=== PATIENT | female | born 1990 | race Caucasian/White ===

== ENCOUNTER 2017-04-15 19:22 | Emergency (ER) | payer OTHER ==
[2017-04-15 19:36] VITALS: TEMP 97.9
[2017-04-15] MEDS ORDERED: OXYCODONE/APAP 5/325 TAB PO ONE (21:05)
[2017-04-15] MEDS ORDERED: IBUPROFEN 600 MG TAB PO ONE (21:05)
--- NOTE | 2017-04-15 21:14 | EDPHY ---
H & P Time Seen by Provider: 04/15/17 20:50 HPI/ROS: CHIEF COMPLAINT: Dog bite HISTORY OF PRESENT ILLNESS: This is a 26-year-old female presenting to the emergency department with dog bite to right forearm. Patient states she was running on her block when a dog jumped over the fence charged her grabbed her on her right forearm 2 puncture wounds noted. Patient states tetanus up-to-date , dog did appear well-appearing it is and neighborhood dog. Police was already notified at the scene. REVIEW OF SYSTEMS: Constitutional: No fever, no chills. Eyes: No discharge. ENT: No sore throat. Cardiovascular: No chest pain, no palpitations. Respiratory: No cough, no shortness of breath. Gastrointestinal: No abdominal pain, no vomiting. Genitourinary: No hematuria. Musculoskeletal: No back pain. Right forearm pain Skin: No rashes. Right forearm dog bite Neurological: No headache. Smoking Status: Never smoked Physical Exam: General Appearance: Alert and no distress. Eyes: Pupils equal and round no injection. Respiratory: Chest is nontender, lungs are clear to auscultation. Cardiac: regular rate and rhythm Gastrointestinal: Abdomen is soft and nontender Musculoskeletal: Neck is supple and nontender. Extremities: Right anterior forearm 1 cm laceration puncture wound Skin: No rashes or lesions. Constitutional: Initial Vital Signs Temperature (C) 36.6 C 04/15/17 19:29 Heart Rate 92 04/15/17 19:29 Respiratory Rate 18 04/15/17 19:29 Blood Pressure 111/87 H 04/15/17 19:29 O2 Sat (%) 100 04/15/17 19:29 O2 Delivery Mode Room Air Allergies/Adverse Reactions: No Known Allergies Allergy (Unverified 04/15/17 19:28) Home Medications: Medication Instructions Recorded Amoxicillin/Clavulanate Pot 875 mg PO BID #14 tab 04/15/17 [Augmentin 875 MG TAB (*)] Medical Decision Making Procedures: Procedure: Laceration repair. Verbal consent was obtained from the patient. 1.5 cm laceration on the right anterior forearm. 0.5 percent bupivacaine with epi 5ml local infiltrate. The wound was irrigated. There were no deep structures involved. The wound was repaired 5-0 Prolene #4 sutures placed. The procedure was performed by myself. A dressing was applied by our EMT. ED Course/Re-evaluation: Discussed ED plan of care: The wound irrigation, wound repair 2245: Wound repair. Patient tolerated procedure. Discharge home---> stable, discussed discharge instructions with patient Differential Diagnosis: Other differential diagnosis considered but not limited to foreign body, deep tissue laceration, cellulitis - Data Points Medications Given: Discontinued Medications Amoxicillin/Clavulanate Potassium (Augmentin 875mg) 875 mg PO EDNOW ONE PRN Reason: Protocol Stop: 04/15/17 22:14 Last Admin: 04/15/17 22:27 Dose: 875 mg Ibuprofen (Motrin) 600 mg PO EDNOW ONE Stop: 04/15/17 21:06 Last Admin: 04/15/17 21:11 Dose: 600 mg Oxycodone/Acetaminophen (Percocet 5/325) 1 tab PO EDNOW ONE Stop: 04/15/17 21:06 Last Admin: 04/15/17 21:11 Dose: 1 tab Oxycodone/Acetaminophen (Percocet 5/325mg Prepack#4) 1 btl TAKEHOME EDNOW ONE Stop: 04/15/17 22:15 Last Admin: 04/15/17 22:29 Dose: 1 btl Departure - Departure Disposition: Home, Routine, Self-Care Clinical Impression: Laceration Dog bite of arm Qualifiers: Encounter type: initial encounter Laterality: right Qualified Code(s): S41.151A - Open bite of right upper arm, initial encounter; W54.0XXA - Bitten by dog, initial encounter Condition: Good Instructions: Oxycodone/Acetaminophen (By mouth), Animal Bite (ED), Care For Your Stitches (ED), Laceration (ED) Additional Instructions: 1. Take all antibiotics as prescribed 2. Monitor wound for any signs of infection, such as: Redness, red streaks, pus, swelling 3. No Yu, river water exposure as this can increase her chances for infection 4. Ibuprofen 600 mg every 6-8 hours as needed 5. Ice 15 minutes several times a day to help with swelling 6. Have stitches removed in 10 days Referrals: NONE *PRIMARY CARE P,. [Primary Care Provider] - As per Instructions [facility],. [Clinic] - As per Instructions Prescriptions: Amoxicillin/Clavulanate Pot [Augmentin 875 MG TAB (*)] 875 mg PO BID #14 tab
[2017-04-15] MEDS ORDERED: AMOXICILLIN/CLAVULANATE POT 875/125 MG TAB PO ONE (22:13)
[2017-04-15] MEDS ORDERED: OXYCODONE/APAP 5/325MG PREPACK#4 BTL TAKEHOME ONE (22:14)
[2017-04-15 22:35] VITALS: BP 115/62; PULSE 70; RESP 14; O2SAT 96
== END 2017-04-15 22:33 | disposition home or self-care (01) ==
PROC: 0HQDXZZ Repair Right Lower Arm Skin, External Approach (ICD-10-PCS; principal; 2017-04-15)
DX: S51.811A Laceration without foreign body of right forearm, initial encounter (principal); W54.0XXA Bitten by dog, initial encounter; Y99.8 Other external cause status; Y93.02 Activity, running

== ENCOUNTER 2017-09-13 09:36 | Day surgery (SDC) | payer OTHER ==
[2017-09-13] MEDS ORDERED: ONDANSETRON 4 MG/2 ML VIAL IVP ONE ×2 (09:44→12:17)
[2017-09-13] MEDS ORDERED: fentaNYL 100 MCG/2 ML INJ IVP ONE (09:44)
--- NOTE | 2017-09-13 10:02 | EDPHY ---
General - History Smoking Status: Never smoked Narrative: CHIEF COMPLAINT: Dog bite to left hand HISTORY OF PRESENT ILLNESS: Patient presents by EMS with complaints of dog bite to the left hand. She says that her dogs were fighting when she attempts to break up a fight. She put her hand between them when 1 of them bit her. The injuries to the left ring finger there is laceration there. Significant pain. No numbness or tingling. Difficulty bending the finger due to pain. No injury elsewhere. Tetanus up-to- date. The dog's are both vaccinated and up-to-date. Pain is rated as 10/10. She arrives by EMS and is at time of arrival they attempted to remove the ring finger but were unable to do so due to crepitus in the finger. No other associated complaints or modifying factors. Right-hand dominant. REVIEW OF SYSTEMS: Ten systems reviewed and are negative unless otherwise noted in the HPI PCP: None SPECIALISTS: None PAST MEDICAL HISTORY: No significant medical history PAST SURGICAL HISTORY: [place] tooth extraction on Saturday FAMILY HISTORY: Noncontributory EXAMINATION General Appearance: Alert, no distress Head: normocephalic, atraumatic ENT: Airway widely patent. No trismus. There is clot formation in the bed of the wisdom tooth extraction sites. No active bleeding. Respiratory: No retractions or distress Cardiovascular: Symmetric radial pulses 2+. Brisk cap refill in the affected finger Neurological: A&O, nonfocal. It sensation intact to the dorsum of both hands. No wrist drop Skin: Warm and dry, no rash. Complex laceration of the left hand, extending from the webspace of the left ring finger to the dorsum of the hand. 2.5 cm. No pulsatile bleeding. Able to visualize fully due to dried Extremities: Tenderness and crepitus to the proximal phalanx of the left ring finger range of motion not tested due to patient pain intolerance. DIFFERENTIAL DIAGNOSES: Including but not limited to dog bite, complex laceration, fracture, open fracture, dislocation, open dislocation MDM: 9:45 a.m. Reported dog bite to the left hand between the ring finger and middle finger. Range of motion was not tested prior to the x-ray due to her pain. She does have brisk cap refill in the affected finger. Tetanus is up-to-date. No acute distress. I will administer digital block. X-ray pending. 10:10 a.m. During administration of the digital Block discovered a 2nd laceration. This is on the radial side of the left 2nd metacarpal. Unable to fully visualize this due to the dried blood. We will clean this and re-evaluate. My initial read of the x-ray at bedside is a fracture of the proximal phalanx on the left ring finger. 10:20 a.m. Ring has been removed. Proceed with topical let application to the 2nd laceration. Then proceed with irrigation. Repeat the x-ray due to partial obscuring of the fracture by the ring. 10:59 a.m. Wounds have now been fully anesthetized and visualized better there does not appear to be an obvious tendon injury, but she does have an open fracture of the proximal phalanx of left ring finger. A superficial laceration of the left hand over the 2nd metacarpal but I will consult hand surgeon at this time. 11:25 a.m. Case discussed with hand surgeon Dr. Pritchard. Request IV Unasyn and bedside irrigation. He will come evaluate the patient. 12:15 p.m. Patient re-evaluated. Digital block is wearing off and her pain is increasing. I have ordered IV pain medication. She remains NPO for the likelihood of surgery. 1:[address] Pritchard is at bedside evaluating the patient. Plans for surgical intervention. She is tentatively scheduled for 16:30 today. Plans for disposition home after operating room. 3:00 p.m. Patient re-evaluated. She is awaiting transport to the operating room. She is complaining of tolerable left hand pain. She has mild pain in the location of her with some tooth extraction. I offered a dental block which she declined. She should be taken for preop soon. PROCEDURE: Digital Block Indication: Finger laceration, fracture and in need of ring removal Consent: Verbal Location: Left ring finger Anesthesia: Lidocaine 1% plain, 0.25% Marcaine plain, 5mL Description: Base of the finger was prepped. The above was infused without difficulty. Tolerated well. Good anesthesia. Complications: None SUPERVISION: Patient was independently examined, but I discussed the case with my secondary supervising physician Dr. Townsend ([facility]) Medical Decision Making: I evaluated and participated in the management of the patient. I also evaluated the patient independently. My co-signature indicates that I have reviewed this chart and I agree with the findings and plan of care as documented. My personal H&P findings include: The patient presents to the ED for evaluation of a open fracture to her left hand. She was bit by her dog prior to arrival. She reports no significant past medical history. She denies any acute numbness or weakness. Physical examination demonstrates a 3 cm oblique laceration over the dorsum of the left 4th finger. I reviewed the patient's x-ray which demonstrates a comminuted fracture to the left proximal phalanx. The patient's wound was anesthetized. It was copiously irrigated. The patient has an open fracture. Consultation was made with Dr. Pritchard from Hand surgery. The patient received IV Unasyn in the emergency department. The patient will be taken to the operating room for washout and ORIF. (Vaibhav Townsend) - Diagnostics Imaging Results: Imaging Impressions Hand X-Ray 09/13/17 09:44 Impression: 1. Complex angulated fracture proximal to midshaft left fourth digit around the ring that remains in place with some gas in the soft tissues. - Objective Vital Signs: Initial Vital Signs Temperature (C) 98.4 F 09/13/17 09:44 Heart Rate 89 09/13/17 09:44 Respiratory Rate 20 09/13/17 09:44 Blood Pressure 124/94 H 09/13/17 09:44 O2 Sat (%) 95 09/13/17 09:44 O2 Delivery Mode Room Air Allergies/Adverse Reactions: No Known Allergies Allergy (Unverified 04/15/17 19:28) Home Medications: Medication Instructions Recorded Amoxicillin Trihydrate 500 mg PO TID 09/13/17 [Amoxicillin] Chlorhexidine Gluconate 1 dose PO 09/13/17 Hydrocodone/Acetaminophen [[place] 1 - 2 each PO Q4 09/13/17 5/325 (*)] Ibuprofen [Motrin (*)] 600 mg PO 09/13/17 Norethindrone-E.estradiol-Iron 1 each PO 09/13/17 [Microgestin Fe 1-20 Tablet] Laboratory Results: Laboratory Results 09/13/17 09:52 09/13/17 09:52 09/13/17 09/13/17 09/13/17 09:52 09:52 09:52 WBC 9.18 10^3/uL 10^3/uL (3.80-9.50) RBC 4.65 10^6/uL 10^6/uL (4.18-5.33) Hgb 14.6 g/dL g/dL (12.6-16.3) Hct 40.9 % % (38.0-47.0) MCV 88.0 fL fL (81.5-99.8) MCH 31.4 pg pg (27.9-34.1) MCHC 35.7 g/dL g/dL (32.4-36.7) RDW 12.4 % % (11.5-15.2) Plt Count 259 10^3/uL 10^3/uL (150-400) Sodium 140 mEq/L mEq/L (134-144) Potassium 3.9 mEq/L mEq/L (3.5-5.2) Chloride 103 mEq/L mEq/L (97-110) Carbon Dioxide 26 mEq/l mEq/l (22-31) Anion Gap 11 mEq/L mEq/L (8-16) BUN 9 mg/dL mg/dL (7-23) Creatinine 0.7 mg/dL mg/dL (0.6-1.0) Estimated GFR > 60 Glucose 89 mg/dL mg/dL (70-100) Calcium 9.5 mg/dL mg/dL (8.5-10.4) Beta HCG, Qual NEGATIVE Medications Given: Discontinued Medications Fentanyl (Sublimaze) 75 mcg IVP EDNOW ONE Stop: 09/13/17 09:45 Last Admin: 09/13/17 10:11 Dose: 75 mcg Ampicillin Sodium/Sulbactam (Sodium 3 gm/ Sodium Chloride) 100 mls @ 200 mls/ hr IV EDNOW ONE PRN Reason: Protocol Stop: 09/13/17 11:54 Last Admin: 09/13/17 12:11 Dose: 100 mls Morphine Sulfate (Morphine) 4 mg IVP EDNOW ONE Stop: 09/13/17 12:18 Last Admin: 09/13/17 12:32 Dose: 4 mg Ondansetron HCl (Zofran) 4 mg IVP EDNOW ONE Stop: 09/13/17 09:45 Last Admin: 09/13/17 10:11 Dose: 4 mg Ondansetron HCl (Zofran) 4 mg IVP EDNOW ONE Stop: 09/13/17 12:18 Last Admin: 09/13/17 12:32 Dose: 4 mg Tetracaine/Epinephrine/Lidocaine (Let Gel Topical) 1 ea TP EDNOW ONE Stop: 09/13/17 10:16 Last Admin: 09/13/17 10:32 Dose: 1 ea Departure - Departure Disposition: To OP Cath/Surgery Clinical Impression: Open fracture of phalanx of finger Qualifiers: Encounter type: initial encounter Finger: ring finger Phalanx: proximal Fracture alignment: displaced Laterality: left Qualified Code(s): S62.615B - Displaced fracture of proximal phalanx of left ring finger, initial encounter for open fracture Dog bite of arm Qualifiers: Encounter type: initial encounter Laterality: left Qualified Code(s): S41.152A - Open bite of left upper arm, initial encounter Condition: Good
[2017-09-13] MEDS ORDERED: LET GEL TOPICAL 1 EA SYR TP ONE (10:15)
[2017-09-13] MEDS ORDERED: AMPICILLIN/SULBACTAM 3 GM in NS 100 ML IV ONE (11:25)
[2017-09-13 12:23] LABS: HEMATOCRIT 40.9 % (38.0-47.0); HEMOGLOBIN 14.6 g/dL (12.6-16.3); MEAN CELL HEMOGLOBIN 31.4 pg (27.9-34.1); MEAN CELL HEMOGLOBIN CONCENTR. 35.7 g/dL (32.4-36.7); RED BLOOD CELL COUNT 4.65 10^6/uL (4.18-5.33); RED CELL DISTRIBUTION WIDTH 12.4 % (11.5-15.2)
[2017-09-13 12:34] LABS: ANION GAP 11 mEq/L (8-16); CALCIUM 9.5 mg/dL (8.5-10.4); CARBON DIOXIDE 26 mEq/l (22-31); CHLORIDE 103 mEq/L (97-110); CREATININE 0.7 mg/dL (0.6-1.0); GLOMERULAR FILTRATION RATE > 60; GLUCOSE 89 mg/dL (70-100); POTASSIUM 3.9 mEq/L (3.5-5.2); SODIUM 140 mEq/L (134-144)
[2017-09-13 14:22] VITALS: PULSE 84
[2017-09-13] MEDS ORDERED: BACITRACIN 50,000 UNITS/10 ML SYR IRR ONE (16:08)
[2017-09-13] MEDS ORDERED: BUPIVACAINE 0.5% 30 ML SDV ONE ×2 (16:08→17:04)
[2017-09-13] MEDS ORDERED: MIDAZOLAM 2 MG/2 ML VIAL IVP ONE (16:28)
[2017-09-13] MEDS ORDERED: LR 1,000 ML IV ONE (16:29)
--- NOTE | 2017-09-13 16:29 | PDANEPAE ---
ANE History of Present Illness here for hand I and D ANE Past Medical History - Cardiovascular History Hx Hypertension: No Hx Arrhythmias: No Hx Chest Pain: No Hx Coronary Artery / Peripheral Vascular Disease: No Hx CHF / Valvular Disease: No Hx Palpitations: No - Pulmonary History Hx COPD: No Hx Asthma/Reactive Airway Disease: No Hx Recent Upper Respiratory Infection: No Hx Oxygen in Use at Home: No Hx Sleep Apnea: No - Endocrine History Hx Diabetes: No ANE Review of Systems Review of systems is: negative Review of Systems: - Exercise capacity Exercise capacity: >=4 METS ANE Patient History - Allergies Allergies/Adverse Reactions: No Known Allergies Allergy (Unverified 04/15/17 19:28) - Home Medications Home medications: home medication list seen and reviewed Home Medications: Amoxicillin Trihydrate [Amoxicillin] 500 mg PO TID 09/13/17 [Last Taken Unknown] Chlorhexidine Gluconate 1 dose PO 09/13/17 [Last Taken Unknown] Hydrocodone/Acetaminophen [[place] 5/325 (*)] 1 - 2 each PO Q4 09/13/17 [Last Taken Unknown] Ibuprofen [Motrin (*)] 600 mg PO 09/13/17 [Last Taken Unknown] Norethindrone-E.estradiol-Iron [Microgestin Fe 1-20 Tablet] 1 each PO 09/13/17 [ Last Taken Unknown] - NPO status NPO Since - Liquids (Date): 09/13/17 NPO Since - Liquids (Time): 08:00 NPO Since - Solids (Date): 09/13/17 NPO Since - Solids (Time): 08:00 - Anes Hx Anes Hx: no prior problems, post operative nausea - Smoking Hx Smoking Status: Never smoked ANE Labs/Vital Signs - Labs Result Diagrams: 09/13/17 09:52 09/13/17 09:52 - Vital Signs Vital Signs: reviewed preoperatively; see RN documention for details Blood Pressure: 115/72 Heart Rate: 84 Respiratory Rate: 16 O2 Sat (%): 96 Height: 152.4 cm Weight: 46.72 kg ANE Physical Exam - Airway Neck exam: FROM Mallampati Score: Class 1 - Pulmonary Pulmonary: no respiratory distress - Cardiovascular Cardiovascular: regular rate and rhythym - ASA Status ASA Status: I ANE Anesthesia Plan Anesthesia Plan: GA w LMA
[2017-09-13] MEDS ORDERED: HYDROCODONE/APAP 5/325 TAB PO PRN (16:31)
[2017-09-13] MEDS ORDERED: fentaNYL 100 MCG/2 ML INJ IVP PRN (16:31)
[2017-09-13] MEDS ORDERED: ALBUTEROL 3 ML DEYVIAL IH PRN (16:31)
[2017-09-13] MEDS ORDERED: NALOXONE HCL 0.4 MG/ML INJ IVP PRN (16:31)
[2017-09-13] MEDS ORDERED: HYDROmorphONE/DILAUDID 1 MG/ML INJ IVP PRN (16:31)
[2017-09-13] MEDS ORDERED: OXYCODONE/APAP 5/325 TAB PO PRN (16:31)
[2017-09-13] MEDS ORDERED: fentaNYL 100 MCG/2 ML INJ ONE (16:44)
[2017-09-13] MEDS ORDERED: PROPOFOL/EMULSION 500 MG/50 ML BOTTLE IV ONE (16:44)
[2017-09-13] MEDS ORDERED: POLYMYXIN B SULFATE 500,000 UNIT/10 ML SYR IRR ONE (17:17)
--- NOTE | 2017-09-13 18:08 | POSTANESTH ---
Post Anesthetic Evaluation Cardiovascular Status: Normal, Stable Respiratory Status: Normal, Stable Level of Consciousness/Mental Status: Moderately Sleepy Pain Control: Adequate, Prn Tx Ordered Nausea/Vomiting Control: Adequate, Prn Tx Ordered Complications Possibly Related to Anesthesia: None Noted
--- NOTE | 2017-09-13 18:09 | POSTOPPROG ---
Post Op Note Date of Operation: 09/13/17 Surgeon: Jose Pritchard Anesthesia: LMA Pre-op Diagnosis: Comminuted compound fracture left ring proximal phalanx Post-op Diagnosis: Same Procedure: Debridement, irrigation, open reduction and internal fixation Inf/Abcess present in the surg proc area at time of surgery?: No EBL: less than 10cc
[2017-09-13 18:27] VITALS: RESP 20
[2017-09-13 18:46] VITALS: TEMP 97.9; O2SAT 97
[2017-09-13] MEDS ORDERED: HYDROCODONE/APAP 5/325 TAB ONE (19:05)
[2017-09-13 19:26] VITALS: BP 118/76
--- NOTE | 2017-09-13 20:42 | GCON ---
[f rep st] CONSULTATION EMERGENCY ROOM CONSULTATION. DATE OF CONSULTATION: 09/13/2017 CHIEF COMPLAINT: Open fracture, left ring finger. HISTORY OF PRESENTING COMPLAINT: The patient is a 26-year-old woman who was breaking up a fight betw een her 2 dogs when she sustained a bite to her left nondominant hand. She sustained several lacerat ions, and the most significant injury over her left ring finger on which she had an engagement ring. PAST MEDICAL HISTORY: Generally unremarkable. Tetanus status is up to date. She had her wisdom john th removed 4 days ago. MEDICATIONS: Amoxil and control. ALLERGIES: No known drug allergies. EXAMINATION: CONSTITUTIONAL: She is a pleasant, healthy looking 26-year-old female. CARDIOVASCULAR : Heart sounds normal. RESPIRATORY: Chest is clear with good air entry. Examination of the left h and reveals several smaller puncture wounds and then a significant laceration at the ulnar side websp adebayo dorsally toward the base of the ring finger, extending out on the proximal 3rd of the proximal ph alanx. There is some deviation of the finger. DIAGNOSTICS: X-ray reveals that the proximal phalanx has a comminuted fracture of the shaft, which i s not intraarticular at either end. IMPRESSION: Compound comminuted fracture, proximal phalanx, left ring finger. PLAN: I am going to take her to the operating room within the next few hours, and we will irrigate a nd debride this fracture and do internal fixation. /[id number]/MODL
[2017-09-13] MEDS ORDERED: AMOXICILLIN/CLAVULANATE POT 875/125 MG TAB PO SCH (21:00)
--- NOTE | 2017-09-14 05:50 | GOP ---
[f rep st] OPERATIVE REPORT DATE OF OPERATION: 09/13/2017 SURGEON: Jose Pritchard MD PREOPERATIVE DIAGNOSIS: Comminuted compound fracture, left ring finger proximal phalanx. POSTOPERATIVE DIAGNOSIS: Comminuted compound fracture, left ring finger proximal phalanx. Addition of a laceration on the volar 1st web space. PROCEDURE PERFORMED: FINDINGS: ESTIMATED BLOOD LOSS: Less than 5 mL. DESCRIPTION OF PROCEDURE: Patient lying supine under general anesthesia. Left hand and forearm prep ped and draped in usual fashion. Esmarch bandage was applied and tourniquet was inflated to 250 mmHg . The existing laceration over the dorsum of the ring finger was extended proximally and distally in a curving fashion for better exposure. Skin flaps were raised and tendon apparatus was rapidly iden tified and split. It was confirmed that the fracture was compound through the tendon apparatus. Com minuted fracture was exposed and this was noted to have comminution right down to just a couple edgar meters from the surface of the metacarpophalangeal joint. Distally, comminutions also continued, but there were major fracture fragments that could be lined up. A T-shaped 1.3 mm plate was selected an d cut to length and, after reducing things into near anatomic alignment of the major fragments, a tot al of 3 screws were placed at the proximal end, 2 of which were successfully placed as bicortical lag screws to obtain a fairly stable reduction of the proximal part of the fracture. On the distal end of the T-shaped plate, 3 screws were placed, all 3 of which were monocortical. This gave a fairly st able near anatomic reduction of the major fragments, and allowed other fragments to stay in position with good alignment and pretty good stability. The fracture had been irrigated out during the course of exposure with a liter of saline with bacitracin and polymyxin. Tendon apparatus was sutured with 4-0 Vicryl interrupted and running sutures. Skin was closed with 5-0 Prolene. Skin of the 1st webs pace area laceration had also been irrigated and was sutured with 5-0 Prolene. Procedure was tolerat ed well. Tourniquet time was 42 minutes. /[id number]/MODL
== END 2017-09-13 20:26 | disposition home or self-care (01) ==
LOC: EDUNIT# → FSGY 14:05
PROVIDERS: ATTEND Plastic Surgery
DX: S62.615B Displaced fracture of proximal phalanx of left ring finger, initial encounter for open fracture (principal); S61.412A Laceration without foreign body of left hand, initial encounter; W54.0XXA Bitten by dog, initial encounter; Y93.K9 Activity, other involving animal care
CPT/HCPCS: 96365; C1713; J0171; J0295; J2250; J2405; J2704; J3010

== ENCOUNTER → 2018-01-22 | Outpatient (CLI) | payer OTHER | LOC: BMCIMAGING 10:22 | PROVIDERS: ATTEND Orthopaedic Surgery Hand Surgery | DX: S62.615D Displaced fracture of proximal phalanx of left ring finger, subsequent encounter for fracture with routine healing (principal) ==